=== PATIENT | female | born 2000 | race Caucasian/White ===

== ENCOUNTER 2025-07-04 19:36 | Emergency (ER) | payer BC ==
[~2025-07-04] VITALS: Ht 160 cm; Wt 105.5 kg
[2025-07-04 19:37] VITALS: TEMP 97.4
[2025-07-04] MEDS: PROPARACAINE 0.5% OPHTH SOL 15ML OD ONE (21:52)
[2025-07-04] MEDS: FLUORESCEIN OPHTH 1 MG STRIP OD ONE (21:52)
[2025-07-04] MEDS: KETOROLAC 30 MG/ML 1 ML VIAL IV ONE (23:00)
[2025-07-04 23:08] VITALS: BP 114/56; O2SAT 98
[2025-07-04 23:17] LABS: BASO # 0.1 10^3/uL (0.0-0.2); BASO % 0.6 % (0.0-1.0); EOS # 0.3 10^3/uL (0.0-0.5); EOS % 3.6 % (0.0-3.0); LYMPH # 2.7 10^3/uL (1.5-5.0); LYMPH % 28.2 % (24.0-44.0); MONO # 0.9 10^3/uL (0.0-0.8); MONO % 9.2 % (2.0-8.0); NEUTROPHILS # 5.5 10^3/uL (1.5-8.5); NEUTROPHILS % 58.1 % (36.0-66.0); PLATELET COUNT, AUTOMATED 364 10^3/uL (150-450)
[2025-07-04 23:22] LABS: ERYTHROCYTE SEDIMENTATION RATE 38 mm/hr (0-20)
[2025-07-04 23:41] LABS: C REACTIVE PROTEIN QUANTITATIV < 0.50 MG/DL (<1.0); CALCIUM LEVEL 8.9 MG/DL (8.5-10.1); CARBON DIOXIDE LEVEL 28 MMOL/L (20-31); CHLORIDE LEVEL 106 MMOL/L (98-107); CREATININE FOR GFR 0.75 MG/DL (0.55-1.30); GLOMERULAR FILTRATION RATE > 90.0 (>60); POTASSIUM SERUM 4.1 MMOL/L (3.5-5.1); SODIUM LEVEL 144 MMOL/L (136-145)
[2025-07-05 00:30] LABS: HCG, SERUM QUALITATIVE NEGATIVE (NEGATIVE)
[2025-07-05] MEDS: ACETAMINOPHEN *IV* 1,000 MG in IV 1 EA IV ONE (01:15)
[2025-07-05] MEDS: predniSONE 20 MG TAB PO ONE (01:15)
[2025-07-05] MEDS: POLYTRIM OPTH DROPS 10ML OD SCH (01:15)
[2025-07-05] MEDS ORDERED: PRED20TA PO (02:08)
[2025-07-05] MEDS: ONDANSETRON 4MG 2ML VIAL IV ONE (02:21)
[2025-07-05] MEDS: NORCO 5/325MG TABLET (HOME DOSE PACK) PO ONE (02:22)
== END 2025-07-05 02:31 | disposition home or self-care (01) ==
LOC: M ED 19:36
DX: H15.001 Unspecified scleritis, right eye (principal); J45.909 Unspecified asthma, uncomplicated; F12.10 Cannabis abuse, uncomplicated; Q25.1 Coarctation of aorta; Z88.5 Allergy status to narcotic agent; Z88.6 Allergy status to analgesic agent; Z79.52 Long term (current) use of systemic steroids
CPT/HCPCS: 80048; 84703; 85025; 85652; 86140; 96374; 96375; 99284; J0131; J1885; J2405; J3010; J7512